=== PATIENT | female | born 1970 | race Caucasian/White ===

== ENCOUNTER 2017-03-20 08:20 | Emergency (ER) | payer OTHER ==
[~2017-03-20] VITALS: Ht 162.6 cm; Wt 89.0 kg
[~2017-03-20 08:20] MED LIST: AMLO10TA80 PO; ASPI-867 PO; ATOR10TA PO; Benazepril Hcl PO; CLOP75TA15 PO; GLYB2.5T4 PO; Metformin Hcl PO
[2017-03-20 09:42] LABS: BASOPHILS % 0.4 % (0.0-2.0); EOSINOPHILS % 1.9 % (0.0-5.0); HEMATOCRIT. 38.8 % (36.0-48.0); HEMOGLOBIN. 13.2 g/dL (12.0-16.0); LYMPHOCYTES % 37.1 % (20.0-50.0); MEAN CORPUSCULAR HEMOGLOBIN 28.9 pg (28.0-32.0); MEAN CORPUSCULAR VOLUME 85.1 fL (81.0-99.0); MEAN PLATELET VOLUME 9.2 fl (7.4-10.4); MONOCYTES % 5.5 % (2.0-8.0); NEUTROPHILS % 55.1 % (40.0-76.0); PLATELET 181 x1000/uL (130-400); RED BLOOD CELL COUNT 4.55 mill/uL (4.2-5.4); RED CELL DISTRIBUTION WIDTH 12.9 % (11.6-14.6)
[2017-03-20 09:49] LABS: PROTHROMBIN TIME 10.7 sec
[2017-03-20 09:56] LABS: HCG SCREEN NEGATIVE
[2017-03-20 10:02] LABS: CARBON DIOXIDE 26 mEq/L (21-32); CHLORIDE 105 mEq/L (98-107)
[2017-03-20] MEDS ORDERED: METOCLOPRAMIDE HCL 10MG/2ML VIAL IV ONE (10:30)
[2017-03-20] MEDS ORDERED: KETOROLAC 30MG/ML VIAL IV ONE (10:30)
[2017-03-20 10:41] VITALS: BP 130/74
== END 2017-03-20 10:57 | disposition home or self-care (01) ==
LOC: ER 08:20
DX: R51 Headache (principal); M54.2 Cervicalgia; I69.398 Other sequelae of cerebral infarction; G93.89 Other specified disorders of brain; E86.0 Dehydration; R03.0 Elevated blood-pressure reading, without diagnosis of hypertension
CPT/HCPCS: 36415; 70450; 71010; 80053; 84703; 85025; 85610; 93005; 96374; 96375; 99285; J1885; J2765; Z7610

== ENCOUNTER 2018-05-20 08:53 | Emergency (ER) | payer OTHER ==
[~2018-05-20] VITALS: Ht 162.6 cm; Wt 93.0 kg
[2018-05-20] MEDS ORDERED: IBUPROFEN 800MG TABLET PO ONE (10:15)
[2018-05-20 10:20] VITALS: BP 192/99
[2018-05-20] MEDS ORDERED: AMLODIPINE 10MG TABLET PO ONE (11:15)
== END 2018-05-20 11:49 | disposition home or self-care (01) ==
LOC: ER 08:53
DX: S90.32XA Contusion of left foot, initial encounter (principal); I10 Essential (primary) hypertension; E11.9 Type 2 diabetes mellitus without complications; W22.8XXA Striking against or struck by other objects, initial encounter; Y93.89 Activity, other specified; Y92.89 Other specified places as the place of occurrence of the external cause; Y99.8 Other external cause status; Z86.73 Personal history of transient ischemic attack (TIA), and cerebral infarction without residual deficits; Z79.82 Long term (current) use of aspirin; Z79.899 Other long term (current) drug therapy
CPT/HCPCS: 73630; 81025; 99284